=== PATIENT | female | born 1950 | race Caucasian/White ===

== ENCOUNTER → 2017-06-26 | Outpatient (CLI) | payer MEDICAID ==
[~2017-06-26] MED LIST: ALBU8.5H2 IH; AMOX500C2 PO; ASPI-892 PO; ATEN25TA PO; CLOP75TA PO; DOXY-182 PO; HYDR-34 PO; HYDR1TAB8 OP; LEVO750T6 PO; MPR22T TOP; ONDA-42 SL; PRAV10TA23 PO; PRD20T PO; SULF1TAB38 PO
== END ==
LOC: RT 13:57
PROVIDERS: ATTEND Internal Medicine Cardiovascular Disease
DX: R06.02 Shortness of breath (principal); I25.10 Atherosclerotic heart disease of native coronary artery without angina pectoris; I65.23 Occlusion and stenosis of bilateral carotid arteries; E78.4 Other hyperlipidemia; Z72.0 Tobacco use
CPT/HCPCS: 94060; 94726; 94729

== ENCOUNTER → 2017-07-06 | Outpatient (CLI) | payer MEDICAID | LOC: CARD 11:39 | PROVIDERS: ATTEND Internal Medicine Cardiovascular Disease | DX: I25.10 Atherosclerotic heart disease of native coronary artery without angina pectoris (principal); R06.02 Shortness of breath; I65.23 Occlusion and stenosis of bilateral carotid arteries; E78.4 Other hyperlipidemia; Z72.0 Tobacco use | CPT/HCPCS: 93306 ==

== ENCOUNTER → 2019-07-02 | Outpatient (CLI) | payer MEDICARE, MEDICAID ==
[~2019-07-02] VITALS: Ht 167 cm; Wt 56.0 kg
[~2019-07-02] MED LIST changes: +REGADENOSON 0.4 MG/5 ML SYR (LEXISCAN) IV ONE
[2019-07-02] MEDS: CATHETER FLUSH 10 ML SYR IV PRN ×2 (08:21→09:36)
[2019-07-02 09:34] VITALS: BP 156/76
--- NOTE | 2019-07-02 12:40 | STRESS TEST ---
DATE OF SERVICE: 07/02/2019 RESTING AND POST REGADENOSON TECHNETIUM-99M TETROFOSMIN SPECT CT IMAGING ORDERING PHYSICIAN: Sandra New APRN PRIMARY PHYSICIAN: Dr. Maldonado. OTHER PHYSICIAN: [facility]. CLINICAL DIAGNOSES: Coronary artery disease, history of tobacco use, hyperlipidemia. Baseline images were carried out after injection of 10.98 mCi of technetium-99m Tetrofosmin. This was followed by 0.4 mg regadenoson and 31.2 mCi of technetium-99m Tetrofosmin for stress imaging. The electrocardiogram showed sinus rhythm at baseline. It did not change significantly with the regadenoson infusion. There was subtle nonspecific ST abnormality at baseline, which did not change significantly. The patient tolerated the procedure well. Review of images at rest and following stress indicates a small inferolateral perfusion defect, which appears transient. Gated images show normal global left ventricular systolic function with normal regional wall motion. Left ventricular ejection fraction is calculated to be 67%. TID is absent (1.06). Left ventricular end diastolic volume is 38 mL. CONCLUSIONS: 1. This study is suggestive of a small amount of inferolateral ischemia. 2. Normal regional wall motion. 3. Normal global left ventricular systolic function with a calculated ejection fraction of 67%. Job ID: [id number] DocumentID: [id number] Dictated Date: 07/02/2019 12:25:14 Home Economist Date: 07/02/2019 12:40:18 Dictated By: PHILIP MALDONADO MD, MA, FACP, FACC,
== END ==
LOC: CARD 07:45
PROVIDERS: ATTEND Nurse Practitioner Family
DX: I25.10 Atherosclerotic heart disease of native coronary artery without angina pectoris (principal); I77.89 Other specified disorders of arteries and arterioles; E78.5 Hyperlipidemia, unspecified; Z72.0 Tobacco use
CPT/HCPCS: 78452; 93017

== ENCOUNTER 2019-08-06 07:07 | Day surgery (SDC) | payer MEDICARE, MEDICAID ==
[2019-08-06] VITALS (16 sets, daily range): BP systolic 120–162; BP diastolic 64–80
[~2019-08-06] VITALS: Ht 167 cm; Wt 56.0 kg
[~2019-08-06 07:07] MED LIST changes: -REGADENOSON 0.4 MG/5 ML SYR (LEXISCAN) IV ONE
[2019-08-06] MEDS ORDERED: LIDOCAINE 1% INJ 20 ML 20 ML VIAL ONE (07:09)
[2019-08-06] MEDS ORDERED: HEParin (CATH LAB) 2,000 ML IV ONE (07:09)
[2019-08-06] MEDS ORDERED: NS IV 1000 ML 1,000 ML ONE (07:09)
[2019-08-06] MEDS ORDERED: NS IV 1000 ML 1,000 ML IV SCH ×2 (07:15→10:01)
[2019-08-06] MEDS ORDERED: CLOP75TA28 PO (07:38)
[2019-08-06 07:46] LABS: HEMOGLOBIN 12.8 G/DL (11.5-16.0); MEAN PLATELET VOLUME 9.6 FL (7.4-10.4); RED CELL DISTRIBUTION WIDTH 12.7 % (10.0-14.5); WHITE BLOOD COUNT 5.7 10^3/uL (4.3-11.0)
[2019-08-06] MEDS ORDERED: MIDAZOLAM 5 MG/5 ML (VERSED) VIAL ONE (07:56)
[2019-08-06] MEDS ORDERED: fentaNYL INJECTION 100 MCG/2 ML AMP ONE (07:56)
[2019-08-06 07:58] LABS: INR 0.9 (0.8-1.4); PROTHROMBIN TIME PATIENT 11.9 SEC (12.2-14.7)
[2019-08-06 08:07] LABS: ALANINE AMINOTRANSFERASE 10 U/L (0-55); ALBUMIN 4.3 GM/DL (3.2-4.5); ALKALINE PHOSPHATASE 72 U/L (40-136); BILIRUBIN,TOTAL 0.5 MG/DL (0.1-1.0); BUN/CREATININE RATIO 10; CALCIUM 8.9 MG/DL (8.5-10.1); CARBON DIOXIDE 24 MMOL/L (21-32); CHLORIDE 101 MMOL/L (98-107); CHOLESTEROL 101 MG/DL (< 200); CREATININE SERUM 0.78 MG/DL (0.60-1.30); GFR ESTIMATED > 60; GLUCOSE 85 MG/DL (70-105); HDL CHOLESTEROL 67 MG/DL (40-60); POTASSIUM 3.9 MMOL/L (3.6-5.0); SODIUM 135 MMOL/L (135-145); TOTAL PROTEIN 6.9 GM/DL (6.4-8.2); TRIGLYCERIDES 46 MG/DL (<150); VLDL CHOLESTEROL 9 MG/DL (5-40)
[2019-08-06] MEDS ORDERED: ADENOSINE 3 MG/1 ML (ADENOSCAN) 30ML VIAL IV ONE (09:03)
[2019-08-06] MEDS ORDERED: HEParin 1000 UNIT/ML (10ML VIAL) FOR BOLUS ONE (09:03)
--- NOTE | 2019-08-06 10:01 | Cardiac Procedure Note-CS/ASA ---
Pre-Procedure Note Pre-Op Procedure Note H&P Reviewed The H&P was reviewed, patient examined and no changes noted. Date H&P Reviewed: Aug 06, 2019 Time H&P Reviewed: 08:45 Conscious Sedation Pre-Proced Time 08:45 ASA Score 3 For ASA 3 and 4: Consider anesthesia and medical clearance. Also, for patients with a history of failed moderate sedation consider anesthesia. Airway Lungs Heart ASA score ASA 1: a normal healthy patient ASA 2: a patient with a mild systemic disease (mid diabetes, controlled hypertension, obesity ASA 3: a patient with a severe systemic disease that limits activity (angina, COPD, prior Myocardial infarction) ASA 4: a patient with an incapacitating disease that is a constant threat to life (CHF, renal failure) ASA 5: a moribund patient not expected to survive 24 hrs. (ruptured aneurysm) ASA 6: a declared brain- patient whose organs are being harvested. For emergent operations, add the letter E after the classification Mallampati Classification Grade 2 Sedation Plan Analgesia, Amnesia, Plan communicated to team members, Discussed options with patient/fam, Discussed risks with patient/fam The patient is an appropriate candidate to undergo the planned procedure, sedation, and anesthesia. The patient immediately re-assessed prior to indication. PHILIP MALDONADO MD FACP FAC CCDS Aug 06, 2019 10:01
--- NOTE | 2019-08-06 10:05 | Discharge Inst-Cardiology ---
Discharge Inst-Cardiac Discharge Medications Continued Medications: Aspirin (Aspirin Ec Tab) 81 Mg Tabec 81 MG PO DAILY Atenolol (Tenormin 25 Mg) 25 Mg Tablet 12.5 MG PO HS Clopidogrel Bisulfate (Clopidogrel) 75 Mg Tablet 75 MG PO HS, TAB Pravastatin Sodium (Pravachol) 10 Mg Tablet 10 MG PO HS Patient Instructions Patient Instructions: No smoking PHILIP MALDONADO MD FACP [facility] Aug 06, 2019 10:05
--- NOTE | 2019-08-06 10:06 | Discharge Inst-Post CATH ---
Discharge Inst-CATH/EP Post Cardiac Cath/EP D/C Inst Follow Up/Plan F/u with Dr Hernandez in 3-4 weeks ACTIVITY * Go Home directly and rest. * Limit activity of the leg (or wrist if it was used) for 7 days including aerobics, swimming, jogging, bicycling, etc. * Restrict stair-climbing for 7 days if possible, if not, climb up with your non-cath leg, then bring together on the same step. * Avoid lifting, pushing, pulling or excessive movement of the affected extremity for 7 days. * Customary sexual activity may be resumed after 2 days-use caution not to use a position that strains or causes pain to the affected extremity. * No driving for 24 hours. * NO SMOKING. * Avoid straining for bowel movements for 7 days. * Gentle walking on level ground is allowed. * Returning to work will depend on the type of procedure and the results. Your doctor will discuss this with you. CALL YOUR DOCTOR FOR ANY OF THE FOLLOWING: *If bleeding from the puncture site occurs- Apply gentle pressure to site with clean cloth and call your doctor or EMS. * If a knot or lump forms under the skin, increases in size, or causes pain. * If bruising appears to be worsening or moving further down your leg instead of disappearing. * Temperature above 101 F. CARE OF YOUR GROIN INCISION; * Bruising or purple discoloration of the skin near the puncture site is common. * You may shower only, no bathtub bathing for 5 days. Be careful to avoid slipping as your leg may feel stiff. * If a closure device was used on your femoral artery, please see the attached guide regarding care of the device and your leg. * Leave dressing on FOR 24 hours. CARE OF YOUR WRIST INCISION; * Bruising or purple discoloration of the skin near the puncture site is common. * You may shower. * DO NOT submerge wrist. * Leave dressing on FOR 24 hours. PHILIP HERNANDEZ MD FACP FAC CCDS Aug 06, 2019 10:06
[2019-08-06] MEDS ORDERED: PATIENT MAY USE OWN MEDS, ALL PO SCH (10:15)
--- NOTE | 2019-08-06 10:53 | CARDIAC CATHETERIZATION ---
DATE OF SERVICE: 08/06/2019 CARDIAC CATHETERIZATION REPORT INDICATION: The patient is a 68-year-old lady, who is known to have coronary artery disease and continuing risk factors. She has been experiencing symptoms that are suggestive of recurrent angina. Previously, she has had stenting of the right coronary artery. Because of recurrent symptoms, cardiac catheterization was recommended. Informed consent was obtained. DESCRIPTION OF PROCEDURE: She was brought to the cardiac catheterization laboratory in a fasting state. Right groin was prepared and draped in the usual sterile fashion. Lidocaine 1% was used for local anesthesia. Modified Seldinger technique was used to advance a 5-[place] sheath in the right femoral artery, 5-[place] JL4 catheter was used for left coronary angiography, 5-[place] JR4 catheter for right coronary angiography, 5-[place] pigtail catheter was used for left heart catheterization and left ventricular angiography. Subsequently, the fractional flow reserve measurement was carried out in the right coronary artery and is described below. Following completion of the fractional flow reserve measurement, Mynx was used to achieve hemostasis following sheath removal. Angiography of the right femoral artery had been carried out through the sheath at the beginning of the procedure. The patient tolerated the procedure well. FRACTIONAL FLOW RESERVE MEASUREMENT IN THE RIGHT CORONARY ARTERY: The right coronary artery was demonstrating approximately 50% distal stenosis. To make sure, given the patient's symptoms, this was not a hemodynamically significant lesion, we carried out fractional flow reserve measurement. We used a 5-[place] JR4 catheter. We gave 5000 units of intravenous heparin. We advanced the pressure wire across the lesion and the tip was placed in the distal vessel. We gave 140 mcg per kilogram per minute of adenosine over two and a half minutes. Fractional flow reserve was measured at 0.89, indicating that the lesion was not hemodynamically significant. HEMODYNAMICS: Left ventricular end-diastolic pressure following coronary angiography was 11 mmHg. There was no significant pressure gradient on pullback across the aortic valve. Ascending aortic pressure was 117/60 with a mean of 83 mmHg. LEFT VENTRICULAR ANGIOGRAPHY: Left ventricular angiography was carried out in the right anterior oblique projection. Global left ventricular systolic function appeared normal. No regional wall motion abnormality was seen. Left ventricular ejection fraction approximately 60%. CORONARY ANGIOGRAPHY: Diffuse coronary calcification is seen. Left main coronary artery does not exhibit significant obstructive disease. Left anterior descending and the left circumflex arteries have diffuse moderate disease. Right coronary artery is dominant. There is a patent stent in its proximal and mid portions that does not showed significant in-stent restenosis. Distal right coronary has approximately 50% stenosis that has fractional flow reserve of 0.89 indicating that it is hemodynamically insignificant. CONCLUSIONS: 1. Moderate coronary artery disease as outlined above. A 50% distal lesion in the right coronary artery has a fractional flow reserve of 0.89 (indicating hemodynamic non-significance). 2. Normal global left ventricular systolic function with an ejection fraction of 60%. 3. Normal left ventricular end-diastolic pressure. DISCUSSION AND RECOMMENDATIONS: Based on the results of the study, it appears appropriate to continue a conservative approach. Risk factor modification has been advised. She has again been advised to quit smoking immediately and completely. Outpatient followup is advised. Job ID: [id number] DocumentID: [id number] Dictated Date: 08/06/2019 09:41:04 Make Up Editor Date: 08/06/2019 10:52:32 Dictated By: PHILIP MALODNADO MD, MA, FACP, FACC, MTDD
--- OUTSIDE RECORDS SUMMARY | 2019-08-08 07:51 | XMS REPORT ---
Author Author Vera DOLL Organization [facility] Address [address] [place] [address] Care Team Providers Care Terrazzo Journeyman Name Role Phone DOLLVERONICA GonzalesELE Unavailable PROBLEMS Type Condition ICD9-CM Code [id number] Code Onset Dates Condition S tatus SNOMED Code Problem Mixed hyperlipidemia E78.2 Active 472228656 Problem Tobacco abuse counseling Z71.6 Activ e 453043933 Problem Tobacco abuse Z72.0 Active 925814 000 Problem Coronary artery disease invo lving [place] coronary artery of [place] heart without angina pectoris I25.10 Active 1641 [id number] ALLERGIES No Known Allergies ENCOUNTERS Encounter Location Date Diagnosis [facility] [address] [place] [phone] 15 Jul, 2017 Mixed hyperlipidemia E78.2 ; Coronary artery disease involving [place] coronary artery of [place] heart without angina pectoris I25.10 ; Tobacco abuse Z72.0 and Tobacco abuse counseling Z71.6 [facility] [address] [place] [id number] [place] [phone] 14 Jul, 2017 [facility] [address] [place] [address] [id number] [address] [place] [phone] Aug, [facility] [address] [facility] [id number] [address] [place] [phone] Aug, [facility] [address] [id number] [place] [phone] Jan, [facility] [address] [id number] [place] [id number] Jan, [facility] [address] [id number] [place] [id number] Jan, [facility] [address] [id number] [place] [phone] Jan, [facility] [address] [id number] [place], [place] [phone] Jan, [facility] [address] [id number] [place], [place] [phone] Jan, [facility] [address] [id number] [place], [place] [id number] Jan, [facility] [address] [id number] [place], [place] [phone] Jan, [facility] [address] [id number] [place] [phone] Dec, IMMUNIZATIONS No Known Immunizations SOCIAL HISTORY Never Assessed REASON FOR VISIT Establish Care--[facility] PLAN OF CARE Activity Details Follow Up 1 Year, prn Reason: VITAL SIGNS Height 65 in 2017-08-10 Weight 126.7 lbs 2017-08-10 Temperature 97.5 degrees Fahrenheit 2017-08-10 Heart Rate 74 bpm 2017-08-10 Respiratory Rate 20 2017-08-10 BMI 21.08 kg/m2 2017-08-10 Blood pressure systolic 120 mmHg 2017-08-10 Blood pressure diastolic 78 mmHg 2017-08-10 MEDICATIONS Medication Instructions Dosage Frequency Start Date End Date Duration S valdo pravastatin 10 mg take 1 tablet (10 mg) by oral route once daily at bedtime Dec, Active Aspirin 81 mg 1 time per day Dec, Active Atenolol 25 mg 0.5 Tablet by Oral route 1 time per day 2 Dec, Active RESULTS No Results PROCEDURES No Known procedures INSTRUCTIONS MEDICATIONS ADMINISTERED No Known Medications MEDICAL (GENERAL) HISTORY Type Description Date Medical History 2006--- [place]- stent RCA w/ M-L vision 3.0 x 18 mm x 2 Surgical History hysterectomy Surgical History carpal tunnelx 2 on right, 1 x on left Surgical History stent x 2 2006 Hospitalization History Surgery(s)/Childbirth(s) only
--- OUTSIDE RECORDS SUMMARY | 2019-08-08 07:51 | XMS REPORT ---
Author Author Vera DOLL Organization [facility] Address [address] [place] [address] Care Team Providers Care Equalizing Saw Operator Name Role Phone DOLLVERONICA GonzalesELE Unavailable PROBLEMS Type Condition ICD9-CM Code [id number] Code Onset Dates Condition S tatus SNOMED Code Problem Mixed hyperlipidemia E78.2 Active 065331877 Problem Tobacco abuse counseling Z71.6 Activ e 880997145 Problem Tobacco abuse Z72.0 Active 100286 000 Problem Coronary artery disease invo lving [place] coronary artery of [place] heart without angina pectoris I25.10 Active 1641 936092983 ALLERGIES No Known Allergies ENCOUNTERS Encounter Location Date Diagnosis [facility] [address] [place] [phone] 15 Jul, 2017 Mixed hyperlipidemia E78.2 ; Coronary artery disease involving [place] coronary artery of [place] heart without angina pectoris I25.10 ; Tobacco abuse Z72.0 and Tobacco abuse counseling Z71.6 [facility] [address] [place] [id number] [address] [place] [phone] 14 Jul, 2017 [facility] [address] [place] [address] [id number] [address] [place] [phone] Aug, [facility] [address] [facility] [id number] [address] [place] [phone] Aug, [facility] [address] [id number] [place], [place] [id number] Jan, [facility] [address] [id number] [place] [phone] Jan, [facility] [address] [id number] [place] [id number] Jan, [facility] [address] [id number] [place] [phone] Jan, [facility] [address] [id number] [place], [place] [phone] Jan, [facility] [address] [id number] [place], [place] [phone] Jan, [facility] [place] [address] [id number] [place], S [phone] Jan, [facility] [place] [address] [id number] [place] [phone] Jan, [facility] [address] [facility] [id number] [place], [place] [phone] Dec, IMMUNIZATIONS No Known Immunizations SOCIAL HISTORY Never Assessed REASON FOR VISIT update [facility] PLAN OF CARE VITAL SIGNS MEDICATIONS Medication Instructions Dosage Frequency Start Date End Date Duration S valdo Atenolol 25 mg 0.5 Tablet by Oral route 1 time per day 2 Dec, Active pravastatin 10 mg take 1 tablet (10 mg) by oral route once daily at bedtime Dec, Active Aspirin 81 mg 1 time per day Dec, Active Plavix 75 mg take 1 tablet (75 mg) by oral route once daily Dec, Not-Taking RESULTS No Results PROCEDURES No Known procedures INSTRUCTIONS MEDICATIONS ADMINISTERED No Known Medications MEDICAL (GENERAL) HISTORY Type Description Date Medical History 2006--- [place]- stent RCA w/ M-L vision 3.0 x 18 mm x 2 Surgical History hysterectomy Surgical History carpal tunnelx 2 on right, 1 x on left Surgical History stent x 2 2006 Hospitalization History Surgery(s)/Childbirth(s) only
--- OUTSIDE RECORDS SUMMARY | 2019-08-08 07:51 | XMS REPORT ---
Author Author Vera Taveras Doctor Organization [facility] Address Unknown Phone Unavailable Care Team Providers Care Coring Machine Operator Name Role Phone Migration, Doctor Unavailable Unavailable PROBLEMS Type Condition ICD9-CM Code RCT45-TT Code Onset Dates Condition S tatus SNOMED Code Problem Tobacco abuse counseling Z71.6 Activ e 525433095 Problem Mixed hyperlipidemia E78.2 Active 870839229 Problem Coronary artery disease invo lving [place] coronary artery of [place] heart without angina pectoris I25.10 Active 1641 758951872 Problem Tobacco abuse Z72.0 Active 562044 000 ALLERGIES No Information ENCOUNTERS Encounter Location Date Diagnosis [place] [address] [place] [id number] [place] [phone] 15 Jul, 2017 Mixed hyperlipidemia E78.2 ; Coronary artery disease involving [place] coronary artery of [place] heart without angina pectoris I25.10 ; Tobacco abuse Z72.0 and Tobacco abuse counseling Z71.6 [place] [address] [facility] [id number] [address] [place] [phone] 14 Jul, 2017 [facility] [address] [facility] [id number] [address] [place] [phone] Aug, [facility] [address] [facility] [id number] [address] [place] [phone] Aug, [facility] [address] [id number] [place] [id number] Jan, [facility] [address] [id number] [place] [phone] Jan, [facility] [address] [id number] [place] [phone] Jan, [facility] [address] [id number] [place] [phone] Jan, [facility] [address] [id number] [place] [id number] Jan, [facility] [address] [id number] [place], [place] [phone] Jan, [facility] [address] [facility] [id number] [place], [place] [phone] Jan, [facility] [address] [facility] [id number] [place], S [phone] Jan, [facility] [address] [facility] [id number] [place] [phone] Dec, IMMUNIZATIONS No Known Immunizations SOCIAL HISTORY Never Assessed REASON FOR VISIT PLAN OF CARE VITAL SIGNS MEDICATIONS No Known Medications RESULTS No Results PROCEDURES No Known procedures INSTRUCTIONS MEDICATIONS ADMINISTERED No Known Medications MEDICAL (GENERAL) HISTORY Type Description Date Medical History 2006--- [place]- stent RCA w/ M-L vision 3.0 x 18 mm x 2 Surgical History hysterectomy Surgical History carpal tunnelx 2 on right, 1 x on left Surgical History stent x 2 2006 Hospitalization History Surgery(s)/Childbirth(s) only
--- OUTSIDE RECORDS SUMMARY | 2019-08-08 07:51 | XMS REPORT ---
Author Author Vera Taveras Doctor Organization [facility] Address Unknown Phone Unavailable Care Team Providers Care Deoiling Machine Operator Name Role Phone Migration, Doctor Unavailable Unavailable PROBLEMS Type Condition ICD9-CM Code RFX41-NS Code Onset Dates Condition S tatus SNOMED Code Problem Tobacco abuse counseling Z71.6 Activ e 265975141 Problem Mixed hyperlipidemia E78.2 Active 020951865 Problem Coronary artery disease invo lving [place] coronary artery of [place] heart without angina pectoris I25.10 Active 1641 919889606 Problem Tobacco abuse Z72.0 Active 560429 000 ALLERGIES No Information ENCOUNTERS Encounter Location Date Diagnosis [place] [address] [place] [id number] [place] [phone] 15 Jul, 2017 Mixed hyperlipidemia E78.2 ; Coronary artery disease involving [place] coronary artery of [place] heart without angina pectoris I25.10 ; Tobacco abuse Z72.0 and Tobacco abuse counseling Z71.6 [place] [address] [facility] [id number] [address] [place] [phone] 14 Jul, 2017 [facility] [address] [facility] [id number] [address] [place] [phone] Aug, [facility] [address] [facility] [id number] [address] [place] [phone] Aug, [facility] [address] [id number] [place] [phone] Jan, [facility] [address] [id number] [place], [place] [phone] Jan, [facility] [address] [id number] [place] [phone] Jan, [facility] [address] [id number] [place] [phone] Jan, [facility] [address] [id number] [place] [phone] Jan, [facility] [place] [address] [id number] [place] [phone] Jan, [facility] [place] [address] [id number] [place] S [phone] Jan, [facility] [place] [address] [id number] [place] S [phone] Jan, [facility] [place] [address] [id number] [place] S [phone] Dec, IMMUNIZATIONS No Known Immunizations SOCIAL HISTORY Never Assessed REASON FOR VISIT [facility] [place] VITAL SIGNS MEDICATIONS Medication Instructions Dosage Frequency Start Date End Date Duration S tatus Plavix 75 mg take 1 tablet (75 mg) by oral route once daily Dec, Active Atenolol 25 mg 0.5 Tablet by Oral route 1 time per day 2 Dec, Active pravastatin 10 mg take 1 tablet (10 mg) by oral route once daily at bedtime Dec, Active Aspirin 81 mg 1 time per day Dec, Active RESULTS No Results PROCEDURES No Known procedures INSTRUCTIONS MEDICATIONS ADMINISTERED No Known Medications MEDICAL (GENERAL) HISTORY Type Description Date Medical History 2006--- [place]- stent RCA w/ M-L vision 3.0 x 18 mm x 2 Surgical History hysterectomy Surgical History carpal tunnelx 2 on right, 1 x on left Surgical History stent x 2 2006 Hospitalization History Surgery(s)/Childbirth(s) only
--- OUTSIDE RECORDS SUMMARY | 2019-08-08 07:51 | XMS REPORT ---
Author Author [employer] Organization [employer] Address [address] [address] Care Team Providers Care Corporate Attorney Name Role Phone DC DOLL Unavailable DC DOLL Unavailable Migration, Doctor Unavailable Unavailable Migration, Doctor Unavailable Unavailable Migration, Doctor Unavailable Unavailable PO VERAS Unavailable Unavailable CAITY, JOANN Unavailable Unavailable CAROLINA, JOANN Unavailable Unavailable PHILIP ARELLANO MA Unavailable Unavailable JOHN HYMAN Unavailable Unavailable Allergies Normalized Allergy Reported Date of Reaction(s) Care Provider Facility Allergy Type classification allergen Allergy Onset no information Unclassified NO KNOWN DRUG UNKNOWN [facility] (5 sources.) ALLERGIES [facility] ([address]) Medications Current Medications Medication Ingredient Drug Dose Dates Status Sig Sig Care Class(es) (Normalized) (Original) Provid er no aspirin Nonsteroida 81 mg 01-19-20 Active no Aspirin 81 no information l 12 information mg 1 time name (3 Anti-inflam per day (no sources.) [facility] Dec, 2011 phone) Active 81 mg 01-19-2012 Active no Aspirin no name inform 81 mg 1 (no ation time per phone) day Dec, Active atenolol 25 atenolol beta-Adrene 12.5 01-19-20 Active take 0.5 Atenolol 25 no mg oral Translation rgic mg 12 tablet by mg 0.5 name tablet (3 s: [ Latoya mouth once Tablet by (no sources.) Atenolol 25 daily Oral route 1 phone) mg] time per day Dec, Active clopidogrel clopidogrel P2Y12 75 mg 01-19-20 Active take 1 Jeannette vix 75 mg no 75 mg oral Translation Platelet 12 tablet by take 1 na me tablet (2 s: [ Plavix Inhibitor mouth once tablet (75 (no sources.) 75 mg] daily mg) by oral phone) route once daily Dec, Active pravastatin pravastatin HMG-CoA 10 mg 01-19-20 Active take 1 pr avastatin no sodium 10 Translation Reductase 12 tablet by 10 mg take 1 name mg oral s: [ Inhibitor mouth once tablet (10 (no tablet (3 pravastatin daily at mg) by oral phone) sources.) 10 mg] bedtime route once daily at bedtime Dec, Active Completed/Discontinued Medications Medication Ingredient Drug Dose Dates Status Sig Sig Care Class(es) (Normalized) (Original) Provid er no Cephalexin Cephalospor 500 mg 03-05-20 no no no no information in 19 - informat information information name (1 source.) Antibacteri 03-05-20 ion (no al 19 phone) Problems Active Problems Problem Normalized Date of Normalized Normalized Provider Fac ility Classification Problem(s) Problem Problem Problem Sta tus Onset/Resoluti Duration on Chronic Chronic 07-08-2019 - Chronic Active JOHN BAIMA [facility] Via obstructive obstructive , [facility] pulmonary pulmonary [facility] - disease and disease, [place] bronchiectasis unspecified ([address]952) (6 sources.) Coronary Coronary 07-08-2019 - Chronic Active PHILIP MALDONADO V Via atherosclerosi arterioscleros [facility]NY [facility] s and other [facility] - heart disease artery [place] (20 sources.) Translations: (29416) [ Coronary artery disease involving [place] coronary artery of [place] heart without angina pectoris, - Coronary artery disease involving [place] coronary artery of [place] heart without angina pectoris I25.10] Administrative Counseling Episodic Active DC DOLL Co mmunity /social procedure with [address] [facility] admission (8 explicit of [place] sources.) context [place] ([address]) Translations: [ Tobacco abuse counseling, - Tobacco abuse counseling Z71.6] Other Disorder of 07-08-2019 - Chronic Active JOHN BAIM A [facility] Via circulatory arteries and , [facility] disease (6 arterioles, Hospital - sources.) unspecified [place] ([address]) Immunizations Encounter for Episodic Active [facility] and [facility] immunization District [facility] of for infectious Translations: [place] disease (2 [ NEED FOR County ([address]) sources.) PROPHYLACTIC VACCINATION AND INOCULATION AGAINST UNSPECIFIED SINGLE DISEASE] Disorders of Mixed 07-08-2019 - Chronic Active PHILIP MALDONADO [facility] Via lipid hyperlipidemia DANNY Mayers metabolism (20 Translations: Hospital - sources.) [ Mixed [place] hyperlipidemia ([address]279) , - Mixed hyperlipidemia E78.2, OTHER HYPERLIPIDEMIA , HYPERLIPIDEMIA , UNSPECIFIED] Occlusion or Occlusion and 07-08-2019 - Chronic Active ALI HERNÁNDEZ MMAD , [facility] Via 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 Hospital - arteries (14 carotid [place] sources.) arteries (17036) Open wounds of Open wound of Episodic Active [facility] extremities (9 foot except District [facility]1 of sources.) toe(s) alone, [place] without County (15561) mention of complication Translations: [ PUNCTURE WOUND WITHOUT FOREIGN BODY, LEFT FOOT, INIT ENCNTR ] Other Other 07-08-2019 - Chronic Active JOHN BAIMA [facility] Via circulatory specified , SET AND EXHIBIT DESIGNERKerri Mayers disease (4 disorders of Hospital - sources.) arteries and [place] arterioles (34818) Peripheral and Peripheral 07-08-2019 - Chronic Active JOHN BAIMA [facility] Via visceral vascular , [employer] DES[employer] [place] atherosclerosi disease, Hospital - s (6 sources.) unspecified [place] ([address]) Other lower Shortness of 07-08-2019 - Episodic Active ALI JUAN ALBERTO AD , [facility] Via respiratory breath [facility] disease (14 Hospital - sources.) [place] ([address]) Substance-rela Tobacco abuse Episodic Active DC DOLL [facility] gilda disorders counseling [address] [place] [address] (2 sources.) Translations: of [facility] [ - Tobacco [place] ([address]) abuse counseling Z71.6] Residual Tobacco use 07-08-2019 - Episodic Active JOHN BAIM A [facility] Via codes; Translations: , [employer] AND [employer] DES[employer] [place] unclassified [ - Tobacco Hospital - (20 sources.) abuse Z72.0] [place] ([address]) Screening or Tobacco user Chronic Active DC DOLL Tn mmunity history of Translations: [address] [place] [address] mental health [ Tobacco of [place] and substance abuse] [place] ([address]) abuse (5 sources.) Past or Other Problems Problem Normalized Date of Normalized Normalized Provider Fac ility Classification Problem(s) Problem Problem Problem Sta tus Onset/Resoluti Duration on Acute Acute Episodic Completed RON Not Available bronchitis (1 bronchitis LINN , (63412) source.) MD NEGATED Cough Episodic Completed RON Not Available no LINN , (64346) information (2 MD sources.) Nausea and Nausea with Episodic Completed JAZLYN WILBURN Not Nilsa ilable vomiting (1 vomiting (84716) source.) Unclassified Other Episodic Completed MARITZA ALFARO Not A vailable (1 source.) screening (19400) mammogram Disorders of Unspecified Episodic Completed MARA Not Nilsa ilable teeth and jaw disorder of TEOFILO SMYTH (01359) (1 source.) the teeth and supporting structures Translations: [ PERIAPICAL ABSCESS, UNSPEC DENTAL CARIES] Procedures The data below is from unstructured sources No Known procedures No Known procedures No Known procedures No Known procedures No Known procedures No Known procedures No Known procedures No Known procedures No Known procedures Immunizations Normalized Immunization Date Notes Care Provider Facili ty Immunization TETANUS,DIPTH,PERT 03-05-2019 no information no name Hosp ital District [facility] ADULT INJ 0 (ADACEL of [facility] SYRINGE) (37538) Results The data below is from unstructured sources No Results No Results No Results No Results No Results No Results No Results No Results No Results Vital Signs Vital Sign Value Interpretation Reference Date Time Care Prov ider Facility (Normalized) (Normalized) Range BMI (Body Mass 21.08 kg/m2 (no code) 15 - 25 kg/m2 08-10-2017 M ROSHNISVEN FRANCISY Community Index) 16:00-0400 [address] [facility] ([address]94) Body 97.5 [degF] (no code) 97.8 - 99.0 08-10-2017 DC LI DANGELO [facility] Temperature [degF] 16:00-[id number] [place] [address] ([address]) Height 165.1 cm (no code) cm 08-10-2017 DC DOLL C ommunity 16:00-[address] [place] [address] ([address]) Weight 57.47 kg (no code) kg 08-10-2017 DC DOLL C ommunity 16:00-[address] [place] [address] ([address]) Interventions No Information Plan of Treatment The data below is from unstructured sources Activity Details Follow Up 1 Year, prn Reason: Goals No Information Social History Normalized Code Original Code Date Value no information no information no information Unknown if ever smoked Functional Status No Information Mental Status No Information Encounters Encounter Normalized Encounter Encounter Diagnosis Care Provi karie Organization Date Type 08-10-2017 (ESTAB) Establish Care Mixed hyperlipidemia DC DOLL (no [facility] - phone) DC Juan (no phone) 08-10-2017 (no phone) - 08-10-2017 02-21-2012 [facility] no information Doctor Migration (no [facility] (no - phone) phone) 02-21-2012 - 02-21-2012 02-20-2012 [facility] no information Doctor Migration (no [facility] (no - phone) phone) 02-20-2012 - 02-20-2012 02-15-2012 [facility] no information Doctor Migration (no [facility] (no - phone) phone) 02-15-2012 - 02-15-2012 02-14-2012 [facility] no information Doctor Migration (no [facility] (no - phone) phone) 02-14-2012 - 02-14-2012 01-19-2012 [facility] no information Doctor Migration (no [facility] (no - phone) phone) 01-19-2012 - 01-19-2012 08-09-2017 [facility] no information DC DOLL (no [facility] - phone) DC Martinez (no phone) 08-09-2017 (no phone) - 08-09-2017 09-09-2014 [facility] no information Doctor Migrati on (no [facility] - phone) (no phone) 09-09-2014 - 09-09-2014 09-08-2014 [facility] no information Doctor Migrati on (no [facility] - phone) (no phone) 09-08-2014 - 09-08-2014 09-29-2013 Emergency department no information no name (no shani ne) no organization name - patient visit (no phone) 09-29-2013 06-07-2013 Emergency department no information no name (no shani ne) no organization name - patient visit (no phone) 06-07-2013 08-29-2012 Emergency department no information no name (no shani ne) no organization name - patient visit (no phone) 08-29-2012 08-10-2017 Patient encounter no information no name (no phone) no organization name (no phone) 07-06-2017 Patient encounter no information no name (no phone) no organization name (no phone) 06-26-2017 Patient encounter no information no name (no phone) no organization name (no phone) 12-03-2015 Patient encounter no information no name (no phone) no organization name (no phone) 01-23-2012 Patient encounter no information no name (no phone) no organization name (no phone) 07-02-2019 Patient encounter no information JOHN MONIQUE VARNISH FINISHER [facility] Via [place] procedure (no phone) [facility] (no phone) 03-05-2019 Patient encounter no information no name (no phone) no organization name - procedure (no phone) 03-06-2019 07-06-2017 Patient encounter no information PHILIP MALDONADO MA FSCA I [facility] Via [place] procedure (no phone) [facility] (no phone) 06-26-2017 Patient encounter no information PHILIP MALDONADO MA FSCA I [facility] Via [place] procedure (no phone) [facility] (no phone) 12-03-2015 Patient encounter no information JOHN MONIQUE VARNISH FINISHER [facility] Via [place] procedure (no phone) [facility] (no phone) Medical Equipment No Information Payers Normalized Payer Value Medicare no information Self-pay no information Additional Source Comments This clinical document has been generated using [employer] software that has been certified by the Office of the National Coordinator for Health Information Technology (ONC 15.99.04.3023.Diam.[id number]) and the National Committee for [employer] Supervisor (NCQA, as an eMeasure certified technology). FOR RECORDS PERTAINING TO PATIENTS WHO ARE OR HAVE BEEN ENROLLED IN A CHEMICAL D EPENDENCY/SUBSTANCE ABUSE PROGRAM, SOME INFORMATION MAY BE OMITTED. This clinica l summary was aggregated from multiple sources. Caution should be exercised in using it in the provision of clinical care. This summary normalizes information from multiple sources, and as a consequence, information in this document may ma terially change the coding, format and clinical context of patient data. In tameka tion, data may be omitted in some cases. CLINICAL DECISIONS SHOULD BE BASED ON T HE PRIMARY CLINICAL RECORDS. [email or web address] provides no warranty or guara ntee of the accuracy or completeness of information in this document.The followi ng information is based on time limited clinical information UNRECOGNIZED CONTENT PROVIDED BELOW FOR UNRECOGNIZED SECTION MEDICAL (GENERAL) HISTORY Type Description Date Medical History 2006--- [place]- stent RC A w/ M-L vision 3.0 x 18 mm x 2 Surgical History hysterectomy Surgical History carpal tunnelx 2 on right, 1 x on left Surgical History stent x 2 2006 Hospitalization History Surgery(s)/C hildbirth(s) only UNRECOGNIZED CONTENT PROVIDED BELOW FOR UNRECOGNIZED SECTION REASON FOR VISIT [id number]
--- OUTSIDE RECORDS SUMMARY | 2019-08-08 07:51 | XMS REPORT ---
Author Author Vera Taveras Doctor Organization [facility] Address Unknown Phone Unavailable Care Team Providers Care Appraisal Specialist Name Role Phone Migration, Doctor Unavailable Unavailable PROBLEMS Type Condition ICD9-CM Code EKS20-QD Code Onset Dates Condition S tatus SNOMED Code Problem Tobacco abuse counseling Z71.6 Activ e [id number] Problem Mixed hyperlipidemia E78.2 Active 836090117 Problem Coronary artery disease invo lving [place] coronary artery of [place] heart without angina pectoris I25.10 Active 1641 [id number] Problem Tobacco abuse Z72.0 Active 211366 000 ALLERGIES No Information ENCOUNTERS Encounter Location Date Diagnosis [place] [address] [place] [id number] [place] [id number] 15 Jul, 2017 Mixed hyperlipidemia E78.2 ; Coronary artery disease involving [place] coronary artery of [place] heart without angina pectoris I25.10 ; Tobacco abuse Z72.0 and Tobacco abuse counseling Z71.6 [place] [address] [facility] [id number] [address] [place] [phone] 14 Jul, 2017 [facility] [address] [facility] [id number] [address] [place] [phone] Aug, [facility] [address] [facility] [id number] [address] [place] [phone] Aug, [facility] [address] [id number] [place] [phone] Jan, [facility] [address] [id number] [place] [id number] Jan, [facility] [address] [id number] [place] [id number] Jan, [facility] [address] [id number] [place] [id number] Jan, [facility] [address] [id number] [place] [phone] Jan, [facility] [address] [id number] [place] [phone] Jan, [facility] [address] [id number] [place], [place] [phone] Jan, [facility] [address] [id number] [place] [phone] Jan, [facility] [address] [facility] [id number] [place] [id number] Dec, IMMUNIZATIONS No Known Immunizations SOCIAL HISTORY Never Assessed REASON FOR VISIT [facility] PLAN OF CARE VITAL SIGNS MEDICATIONS No Known Medications RESULTS No Results PROCEDURES No Known procedures INSTRUCTIONS MEDICATIONS ADMINISTERED No Known Medications MEDICAL (GENERAL) HISTORY Type Description Date Medical History 2006--- [place]- stent RCA w/ M-L vision 3.0 x 18 mm x 2 Surgical History hysterectomy Surgical History carpal tunnelx 2 on right, 1 x on left Surgical History stent x 2 2006 Hospitalization History Surgery(s)/Childbirth(s) only
--- OUTSIDE RECORDS SUMMARY | 2019-08-08 07:52 | XMS REPORT | Continuity of Care Document ---
Author Organization Unknown Address Unknown Phone Unavailable Allergies Active Description Code Type Severity Reaction Onset Reported/Identified Relationship to Patient Clinical Status Yes NO KNOWN DRUG ALLERGIES UNKNOWN UNKNOWN Yes No Known Drug Allergies [id number] Drug Allergy Mild N/A 09/22/2006 Medications Medication Packaging Start Date St op Date Route Dosage Sig CEPHALEXIN CAP 500 MG (KEFLEX) MG 03/05/2019 03/05/2019 ONCE&212 TETANUS,DIPTH,PERT ADULT INJ 0 (ADACEL SYRINGE) ML 03/05/2019 03/05/2019 ONCE&212 Problems Date Dx Coded Attending Type Code Diagnosis Diagnosed By 03/11/2011 Ot 816.10 FX PHALANX, HAND NOS-OPN 03/11/2011 Ot 959.5 FING ER INJURY NOS 03/11/2011 Ot E000.8 OT ER EXTERNAL CAUSE STATUS 03/11/2011 Ot E918 CAUGH T BETWEEN OBJECTS 03/11/2011 Ot V03.7 TETA NUS TOXOID INOCULAT 10/27/2011 Ot 300.4 DYST HYMIC DISORDER 10/27/2011 Ot 305.1 [facility] COORDINATOR USE DISORDER 10/27/2011 Ot 414.01 COR ONARY ATHEROSCLEROSIS OF [place] CORON 10/27/2011 Ot 496 CHR AI RWAY OBSTRUCT NEC 10/27/2011 Ot 786.09 RES PIRATORY ABNORM NEC 10/27/[address] PAIN NEC 10/27/2011 Ot V45.82 PER CUTANEOUS TRANSLUM CORON ANGIOPLASTY 10/27/2011 Ot V58.63 NU G- TERM(CURRENT)USE OF ANTIPLATELET/AN 10/27/2011 Ot V58.66 NU G-TERM (CURRENT) USE OF ASPIRIN 10/27/2011 Ot V58.69 OT MED,LT,CURRENT USE 08/29/2012 Ot 466.0 ACUT E BRONCHITIS 08/29/2012 Ot 786.2 COUGH 06/07/2013 JAZLYN WILBURN APRN Ot 786 .2 COUGH 06/07/2013 WILBURN, PETER J APPLICATIONS ANALYST Ot 787.01 NAUSEA WITH VOMITING 09/29/2013 MARA ACKERMAN Ot 521.00 UNSPEC DENTAL CARIES 09/29/2013 MARA ACKERMAN Ot 522.5 PERIAPICAL ABSCESS 09/29/2013 MARA ACKERMAN Ot 525.9 DENTAL DISORDER NOS 12/03/2015 Ot 305.1 [facility] COORDINATOR USE DISORDER 12/03/2015 Ot 414.00 COR ON ATHEROSCLER NOS TYPE VESSEL, NATIV 12/03/2015 Ot 496 CHR AI RWAY OBSTRUCT NEC 12/03/2015 Ot 786.05 ELVIN RTNESS OF BREATH 12/03/2015 Ot V58.63 NU G- TERM(CURRENT)USE OF ANTIPLATELET/AN 12/03/2015 Ot V58.66 NU G-TERM (CURRENT) USE OF ASPIRIN 12/03/2015 Ot V58.69 OTH MED,LT,CURRENT USE 12/03/2015 Ot V72.63 PRE -PROCEDURAL LABORATORY EXAMINATION 12/03/2015 Ot V72.81 ARIE-BSF-RWZSLHNAS CARDIOVASCULAR 12/03/2015 Ot V76.12 OT SCREEN MAMMO- MALIGN NEOPLASM OF [place] 12/04/2015 JOHN FELIPE L MOLD MAKER HELPER Ot E78.5 HYPERLIPIDEMIA, UNSPECIFIED 12/04/2015 BAIMA, JOHN L MOLD MAKER HELPER Ot I25.10 ATHSCL HEART DISEASE OF [place] CORONARY 12/04/2015 DESTINEE JOHN L MOLD MAKER HELPER Ot I73.9 PERIPHERAL VASCULAR DISEASE, UNSPECIFIED 12/04/2015 BAIMA JOHN L MOLD MAKER HELPER Ot I77.9 DISORDER OF ARTERIES AND ARTERIOLES, UNS 12/04/2015 JOHN FELIPE L MOLD MAKER HELPER Ot J44.9 CHRONIC OBSTRUCTIVE PULMONARY DISEASE, U 12/04/2015 GRISELDAMA JOHN L MOLD MAKER HELPER Ot Z72.0 TOBACCO USE 12/09/2015 GRISELDAMA JOHN L MOLD MAKER HELPER Ot E78.5 HYPERLIPIDEMIA, UNSPECIFIED 12/09/2015 GRISELDAMA JOHN L MOLD MAKER HELPER Ot I25.10 ATHSCL HEART DISEASE OF [place] CORONARY 12/09/2015 JANNY FELIPEHER L MOLD MAKER HELPER Ot I73.9 PERIPHERAL VASCULAR DISEASE, UNSPECIFIED 12/09/2015 BAIMAJANNYJOHN L MOLD MAKER HELPER Ot I77.9 DISORDER OF ARTERIES AND ARTERIOLES, UNS 12/09/2015 DESTINEE JOHN L MOLD MAKER HELPER Ot J44.9 CHRONIC OBSTRUCTIVE PULMONARY DISEASE, U 12/09/2015 JOHN FELIPE MOLD MAKER HELPER Ot Z72.0 TOBACCO USE 12/23/2015 JOHN FELIPE MOLD MAKER HELPER Ot E78.5 HYPERLIPIDEMIA, UNSPECIFIED 12/23/2015 BAIMAJOHN L MOLD MAKER HELPER Ot I25.10 ATHSCL HEART DISEASE OF [place] CORONARY 12/23/2015 JOHN FELIPE L MOLD MAKER HELPER Ot I73.9 PERIPHERAL VASCULAR DISEASE, UNSPECIFIED 12/23/2015 JOHN FELIPE L MOLD MAKER HELPER Ot I77.9 DISORDER OF ARTERIES AND ARTERIOLES, UNS 12/23/2015 JOHN FELIPE L MOLD MAKER HELPER Ot J44.9 CHRONIC OBSTRUCTIVE PULMONARY DISEASE, U 12/23/2015 JOHN FELIPE MOLD MAKER HELPER Ot Z72.0 TOBACCO USE 06/26/2017 Ot V76.12 OTH SCREEN MAMMO- MALIGN NEOPLASM OF [place] 06/26/2017 JOHN FELIPE MOLD MAKER HELPER Ot E78.5 HYPERLIPIDEMIA, UNSPECIFIED 06/26/2017 BAIJOHN DELGADO L MOLD MAKER HELPER Ot I25.10 ATHSCL HEART DISEASE OF [place] CORONARY 06/26/2017 JOHN FELIPE MOLD MAKER HELPER Ot I73.9 PERIPHERAL VASCULAR DISEASE, UNSPECIFIED 06/26/2017 JOHN FELIPE MOLD MAKER HELPER Ot I77.9 DISORDER OF ARTERIES AND ARTERIOLES, UNS 06/26/2017 JOHN FELIPE MOLD MAKER HELPER Ot J44.9 CHRONIC OBSTRUCTIVE PULMONARY DISEASE, U 06/26/2017 JOHN FELIPE L MOLD MAKER HELPER Ot Z72.0 TOBACCO USE 06/27/2017 ERICA ARRIAZA FACC, PHILIP FACP CCDS Ot E78.4 OTHER HYPERLIPIDEMIA 06/27/2017 ERICA ARRIAZA FACC, ALI FACP CCDS Ot I25.10 ATHSCL HEART DISEASE OF [place] CORONARY 06/27/2017 ERICA ARRIAZA FACC, PHILIP FACP CCDS Ot I65.23 OCCLUSION AND STENOSIS OF [place] 06/27/2017 ERICA ARRIAZA FACC, PHILIP FACP CCDS Ot R06.02 SHORTNESS OF BREATH 06/27/2017 ERICA ARRIAZA FACC, ALI FACP CCDS Ot Z72.0 TOBACCO USE 07/11/2017 ERICA ARRIAZA FACC, PHILIP FACP CCDS Ot E78.4 OTHER HYPERLIPIDEMIA 07/11/2017 ERICA ARRIAZA FACC, ALI FACP CCDS Ot I25.10 ATHSCL HEART DISEASE OF [place] CORONARY 07/11/2017 ERICA ARRIAZA FACC, ALI FACP CCDS Ot I65.23 OCCLUSION AND STENOSIS OF [place] 07/11/2017 ERICA MD FACC, ALI FACP CCDS Ot R06.02 SHORTNESS OF BREATH 07/11/2017 ERICA ARRIAZA FACC, ALI FACP CCDS Ot Z72.0 TOBACCO USE 07/13/2017 ERICA MD FACC, ALI FACP CCDS Ot E78.4 OTHER HYPERLIPIDEMIA 07/13/2017 ERICA MD FACC, ALI FACP CCDS Ot I25.10 ATHSCL HEART DISEASE OF [place] CORONARY 07/13/2017 ERICA MD FACC, ALI FACP CCDS Ot I65.23 OCCLUSION AND STENOSIS OF [place] 07/13/2017 ERICA ARRIAZA FACC, ALI FACP CCDS Ot R06.02 SHORTNESS OF BREATH 07/13/2017 ERICA ARRIAZA FACC, ALI FACP CCDS Ot Z72.0 TOBACCO USE 07/13/2017 ERICA ARRIAZA FACC, ALI FACP CCDS Ot E78.4 OTHER HYPERLIPIDEMIA 07/13/2017 ERICA ARRIAZA FAC, ALI FACP CCDS Ot I25.10 ATHSCL HEART DISEASE OF [place] CORONARY 07/13/2017 ERICA ARRIAZA FAC, ALI FACP CCDS Ot I65.23 OCCLUSION AND STENOSIS OF [place] 07/13/2017 ERICA ARRIAZA FAC, ALI FACP CCDS Ot R06.02 SHORTNESS OF BREATH 07/13/2017 ERICA ARRIAZA [facility], ALI FACP CCDS Ot Z72.0 TOBACCO USE 07/24/2017 ERICA ARRIAZA [facility], ALI FACP CCDS Ot E78.4 OTHER HYPERLIPIDEMIA 07/24/2017 ERICA ARRIAZA [facility], ALI FACP CCDS Ot I25.10 ATHSCL HEART DISEASE OF [place] CORONARY 07/24/2017 ERICA ARRIAZA FAC, ALI FACP CCDS Ot I65.23 OCCLUSION AND STENOSIS OF [place] 07/24/2017 ERICA ARRIAZA FACC, ALI FACP CCDS Ot R06.02 SHORTNESS OF BREATH 07/24/2017 ERICA ARRIAZA FACC, ALI FACP CCDS Ot Z72.0 TOBACCO USE 03/05/2019 BrownDarvin W 892.0 OPEN WOUND OF FOOT EXCEPT TOE(S) ALONE, WITHOUT MENTION OF COMPLICATION 03/05/2019 BrownDarvin W 892.0 OPEN WOUND OF FOOT EXCEPT TOE(S) ALONE, WITHOUT MENTION OF COMPLICATION 03/05/2019 Darvin Hankins W 892.0 OPEN WOUND OF FOOT EXCEPT TOE(S) ALONE, WITHOUT MENTION OF COMPLICATION 03/05/2019 Darvin Hankins W S91.332A PUNCTURE WOUND WITHOUT FOREIGN BODY, LEFT FOOT, INIT ENCNTR 03/05/2019 Darvin Hankins W V05.9 NEED FOR PROPHYLACTIC VACCINATION AND INOCULATION AGAINST UNSPECIFIED SINGLE DISEASE 03/05/2019 Darvin Hankins W Z23 ENCOUNTER FOR IMMUNIZATION 07/01/2019 JOHN FELIPE MOLD MAKER HELPER Ot E78.5 HYPERLIPIDEMIA, UNSPECIFIED 07/01/2019 JOHN FELIPE L MOLD MAKER HELPER Ot I25.10 ATHSCL HEART DISEASE OF [place] CORONARY 07/01/2019 JOHN FELIPE MOLD MAKER HELPER Ot I73.9 PERIPHERAL VASCULAR DISEASE, UNSPECIFIED 07/01/2019 JOHN FELIPE MOLD MAKER HELPER Ot I77.9 DISORDER OF ARTERIES AND ARTERIOLES, UNS 07/01/2019 JOHN FELIPE MOLD MAKER HELPER Ot J44.9 CHRONIC OBSTRUCTIVE PULMONARY DISEASE, U 07/01/2019 JOHN FELIPE L MOLD MAKER HELPER Ot Z72.0 TOBACCO USE 07/01/2019 ERICA ARRIAZA [facility], ALI FACP CCDS Ot E78.4 OTHER HYPERLIPIDEMIA 07/01/2019 ERICA ARRIAZA [facility], ALI FACP CCDS Ot I25.10 ATHSCL HEART DISEASE OF [place] CORONARY 07/01/2019 ERICA ARRIAZA [facility], ALI FACP CCDS Ot I65.23 OCCLUSION AND STENOSIS OF [place] 07/01/2019 ERICA RARIAZA [facility], ALI FACP CCDS Ot R06.02 SHORTNESS OF BREATH 07/01/2019 ERICA ARRIAZA [facility], ALI FACP CCDS Ot Z72.0 TOBACCO USE 07/01/2019 ERICA ARRIAZA [facility], ALI FACP CCDS Ot E78.4 OTHER HYPERLIPIDEMIA 07/01/2019 ERICA ARRIAZA [facility], ALI FACP CCDS Ot I25.10 ATHSCL HEART DISEASE OF [place] CORONARY 07/01/2019 ERICA ARRIAZA [facility], ALI FACP CCDS Ot I65.23 OCCLUSION AND STENOSIS OF [place] 07/01/2019 ERICA RENNER, ALI FACP CCDS Ot R06.02 SHORTNESS OF BREATH 07/01/2019 ERICA ARRIAZA FACC, ALI FACP CCDS Ot Z72.0 TOBACCO USE 07/02/2019 BAIMA, JOHN L MOLD MAKER HELPER Ot E78.5 HYPERLIPIDEMIA, UNSPECIFIED 07/02/2019 BAIMA, JOHN L MOLD MAKER HELPER Ot I25.10 ATHSCL HEART DISEASE OF [place] CORONARY 07/02/2019 BAIMA, JOHN L MOLD MAKER HELPER Ot I73.9 PERIPHERAL VASCULAR DISEASE, UNSPECIFIED 07/02/2019 BAIMA, JOHN L MOLD MAKER HELPER Ot I77.9 DISORDER OF ARTERIES AND ARTERIOLES, UNS 07/02/2019 BAIMA, JOHN L MOLD MAKER HELPER Ot J44.9 CHRONIC OBSTRUCTIVE PULMONARY DISEASE, U 07/02/2019 BAIMA, JOHN L MOLD MAKER HELPER Ot Z72.0 TOBACCO USE 07/02/2019 ERICA ARRIAZA FACC, ALI FACP CCDS Ot E78.4 OTHER HYPERLIPIDEMIA 07/02/2019 ERICA ARRIAZA [facility], ALI FACP CCDS Ot I25.10 ATHSCL HEART DISEASE OF [place] CORONARY 07/02/2019 ERICA ARRIAZA [facility], ALI FACP CCDS Ot I65.23 OCCLUSION AND STENOSIS OF [place] 07/02/2019 ERICA ARRIAZA [facility], ALI FACP CCDS Ot R06.02 SHORTNESS OF BREATH 07/02/2019 ERICA ARRIAZA [facility], ALI FACP CCDS Ot Z72.0 TOBACCO USE 07/02/2019 ERICA ARRIAZA [facility], ALI FACP CCDS Ot E78.4 OTHER HYPERLIPIDEMIA 07/02/2019 ERICA ARRIAZA [facility], ALI FACP CCDS Ot I25.10 ATHSCL HEART DISEASE OF [place] CORONARY 07/02/2019 ERICA ARRIAZA [facility], PHILIP FACP CCDS Ot I65.23 OCCLUSION AND STENOSIS OF [place] 07/02/2019 ERICA ARRIAZA [facility], ALI FACP CCDS Ot R06.02 SHORTNESS OF BREATH 07/02/2019 REICA ARRIAZA [facility], ALI FACP CCDS Ot Z72.0 TOBACCO USE 07/03/2019 BAIMA, JOHN L MOLD MAKER HELPER Ot E78.5 HYPERLIPIDEMIA, UNSPECIFIED 07/03/2019 BAIMA, JOHN L MOLD MAKER HELPER Ot I25.10 ATHSCL HEART DISEASE OF [place] CORONARY 07/03/2019 BAIMA, JOHN L MOLD MAKER HELPER Ot I77.89 OTHER SPECIFIED DISORDERS OF ARTERIES AN 07/03/2019 BAIMA, JOHN L MOLD MAKER HELPER Ot Z72.0 TOBACCO USE 07/08/2019 BAIMA, JOHN L MOLD MAKER HELPER Ot E78.5 HYPERLIPIDEMIA, UNSPECIFIED 07/08/2019 BAIMA, JOHN L MOLD MAKER HELPER Ot I25.10 ATHSCL HEART DISEASE OF [place] CORONARY 07/08/2019 BAIMA, JOHN L MOLD MAKER HELPER Ot I73.9 PERIPHERAL VASCULAR DISEASE, UNSPECIFIED 07/08/2019 BAIMA, JOHN L MOLD MAKER HELPER Ot I77.9 DISORDER OF ARTERIES AND ARTERIOLES, UNS 07/08/2019 BAIMA, JOHN L MOLD MAKER HELPER Ot J44.9 CHRONIC OBSTRUCTIVE PULMONARY DISEASE, U 07/08/2019 BAIMA, JOHN L MOLD MAKER HELPER Ot Z72.0 TOBACCO USE 07/08/2019 ERICA ARRIAZA [facility], ALI FACP CCDS Ot E78.4 OTHER HYPERLIPIDEMIA 07/08/2019 ERICA ARRIAZA [facility], ALI FACP CCDS Ot I25.10 ATHSCL HEART DISEASE OF [place] CORONARY 07/08/2019 ERICA ARRIAZA [facility], ALI FACP CCDS Ot I65.23 OCCLUSION AND STENOSIS OF [place] 07/08/2019 ERICA ARRIAZA [facility], ALI FACP CCDS Ot R06.02 SHORTNESS OF BREATH 07/08/2019 ERICA ARRIAZA [facility], ALI FACP CCDS Ot Z72.0 TOBACCO USE 07/08/2019 ERICA ARRIAZA [facility], ALI FACP CCDS Ot E78.4 OTHER HYPERLIPIDEMIA 07/08/2019 ERICA ARRIAZA [facility], ALI FACP CCDS Ot I25.10 ATHSCL HEART DISEASE OF [place] CORONARY 07/08/2019 ERICA ARRIAZA [facility], ALI FACP CCDS Ot I65.23 OCCLUSION AND STENOSIS OF [place] 07/08/2019 ERICA ARRIAZA [facility], ALI FACP CCDS Ot R06.02 SHORTNESS OF BREATH 07/08/2019 ERICA ARRIAZA [facility], ALI FACP CCDS Ot Z72.0 TOBACCO USE 07/08/2019 BAIMA, JOHN L MOLD MAKER HELPER Ot E78.5 HYPERLIPIDEMIA, UNSPECIFIED 07/08/2019 BAIMA, JOHN L MOLD MAKER HELPER Ot I25.10 ATHSCL HEART DISEASE OF [place] CORONARY 07/08/2019 BAIMA, JOHN L MOLD MAKER HELPER Ot I77.89 OTHER SPECIFIED DISORDERS OF ARTERIES AN 07/08/2019 BAIMA, JOHN L MOLD MAKER HELPER Ot Z72.0 TOBACCO USE 07/08/2019 BAIMA, JOHN L MOLD MAKER HELPER Ot E78.5 HYPERLIPIDEMIA, UNSPECIFIED 07/08/2019 BAIMA, JOHN L MOLD MAKER HELPER Ot I25.10 ATHSCL HEART DISEASE OF [place] CORONARY 07/08/2019 BAIMA, JOHN L MOLD MAKER HELPER Ot I73.9 PERIPHERAL VASCULAR DISEASE, UNSPECIFIED 07/08/2019 BAIMA, JOHN L MOLD MAKER HELPER Ot I77.9 DISORDER OF ARTERIES AND ARTERIOLES, UNS 07/08/2019 BAIMA, JOHN L MOLD MAKER HELPER Ot J44.9 CHRONIC OBSTRUCTIVE PULMONARY DISEASE, U 07/08/2019 BAIMA, JOHN L MOLD MAKER HELPER Ot Z72.0 TOBACCO USE 07/08/2019 ERICA ARRIAZA [facility], ALI FACP CCDS Ot E78.4 OTHER HYPERLIPIDEMIA 07/08/2019 ERICA ARRIAZA [facility], ALI FACP CCDS Ot I25.10 ATHSCL HEART DISEASE OF [place] CORONARY 07/08/2019 ERICA ARRIAZA [facility], ALI FACP CCDS Ot I65.23 OCCLUSION AND STENOSIS OF [place] 07/08/2019 ERICA ARRIAZA [facility], ALI FACP CCDS Ot R06.02 SHORTNESS OF BREATH 07/08/2019 ERICA ARRIAZA [facility], ALI FACP CCDS Ot Z72.0 TOBACCO USE 07/08/2019 ERICA ARRIAZA [facility], ALI FACP CCDS Ot E78.4 OTHER HYPERLIPIDEMIA 07/08/2019 ERICA ARRIAZA [facility], ALI FACP CCDS Ot I25.10 ATHSCL HEART DISEASE OF [place] CORONARY 07/08/2019 ERICA ARRIAZA [facility], ALI FACP CCDS Ot I65.23 OCCLUSION AND STENOSIS OF [place] 07/08/2019 ERICA ARRIAZA [facility], ALI FACP CCDS Ot R06.02 SHORTNESS OF BREATH 07/08/2019 ERICA ARRIAZA [facility], ALI FACP CCDS Ot Z72.0 TOBACCO USE 07/08/2019 BAIMA, JOHN L MOLD MAKER HELPER Ot E78.5 HYPERLIPIDEMIA, UNSPECIFIED 07/08/2019 BAIMA, JOHN L MOLD MAKER HELPER Ot I25.10 ATHSCL HEART DISEASE OF [place] CORONARY 07/08/2019 BAIMA, JOHN L MOLD MAKER HELPER Ot I77.89 OTHER SPECIFIED DISORDERS OF ARTERIES AN 07/08/2019 BAIMA, JOHN L MOLD MAKER HELPER Ot Z72.0 TOBACCO USE 07/23/2019 BAIMA, JOHN L MOLD MAKER HELPER Ot E78.5 HYPERLIPIDEMIA, UNSPECIFIED 07/23/2019 BAIMA, JOHN L MOLD MAKER HELPER Ot I25.10 ATHSCL HEART DISEASE OF [place] CORONARY 07/23/2019 BAIMA, JOHN L MOLD MAKER HELPER Ot I77.89 OTHER SPECIFIED DISORDERS OF ARTERIES AN 07/23/2019 BAIMA, JOHN L MOLD MAKER HELPER Ot Z72.0 TOBACCO USE 08/06/2019 BAIMA, JOHN L MOLD MAKER HELPER Ot E78.5 HYPERLIPIDEMIA, UNSPECIFIED 08/06/2019 BAIMA, JOHN L MOLD MAKER HELPER Ot I25.10 ATHSCL HEART DISEASE OF [place] CORONARY 08/06/2019 BAIMA, JOHN L MOLD MAKER HELPER Ot I73.9 PERIPHERAL VASCULAR DISEASE, UNSPECIFIED 08/06/2019 BAIMA, JOHN L MOLD MAKER HELPER Ot I77.9 DISORDER OF ARTERIES AND ARTERIOLES, UNS 08/06/2019 BAIMA, JOHN L MOLD MAKER HELPER Ot J44.9 CHRONIC OBSTRUCTIVE PULMONARY DISEASE, U 08/06/2019 BAIMA, JOHN L MOLD MAKER HELPER Ot Z72.0 TOBACCO USE 08/06/2019 ERICA ARRIAZA FACVladimir, ALI FACP CCDS Ot E78.4 OTHER HYPERLIPIDEMIA 08/06/2019 ERICA ARRIAZA FAC, ALI FACP CCDS Ot I25.10 ATHSCL HEART DISEASE OF [place] CORONARY 08/06/2019 ERIAC ARRIAZA FACC, ALI FACP CCDS Ot I65.23 OCCLUSION AND STENOSIS OF [place] 08/06/2019 ERICA ARRIAZA FACC, ALI FACP CCDS Ot R06.02 SHORTNESS OF BREATH 08/06/2019 ERICA ARRIAZA FACVladimir, ALI FACP CCDS Ot Z72.0 TOBACCO USE 08/06/2019 ERICA ARRIAZA FACVladimir, ALI FACP CCDS Ot E78.4 OTHER HYPERLIPIDEMIA 08/06/2019 ERICA ARRIAZA FACC, ALI FACP CCDS Ot I25.10 ATHSCL HEART DISEASE OF [place] CORONARY 08/06/2019 ERICA ARRIAZA FACC, ALI FACP CCDS Ot I65.23 OCCLUSION AND STENOSIS OF [place] 08/06/2019 ERICA ARRIAZA FACC, ALI FACP CCDS Ot R06.02 SHORTNESS OF BREATH 08/06/2019 ERICA ARRIAZA FACC, ALI FACP CCDS Ot Z72.0 TOBACCO USE 08/06/2019 BAIMA, JOHN L MOLD MAKER HELPER Ot E78.5 HYPERLIPIDEMIA, UNSPECIFIED 08/06/2019 BAIMA, JOHN L MOLD MAKER HELPER Ot I25.10 ATHSCL HEART DISEASE OF [place] CORONARY 08/06/2019 JOHN FELIPE MOLD MAKER HELPER Ot I77.89 OTHER SPECIFIED DISORDERS OF ARTERIES AN 08/06/2019 JOHN FELIPE MOLD MAKER HELPER Ot Z72.0 TOBACCO USE Procedures There is no data. Results Test Result Range Automated blood complete blood count (he mogram) panel - 08/06/19 07:32 Blood leukocytes automated count (number/volume) 5.7 10*3/uL 4.3-11.0 Blood erythrocytes automated count (number/volume) 3.81 10*6/uL 4.35-5.85 Venous blood hemoglobin measurement (mass/volume) 12.8 g/dL 11.5-16.0 Blood hematocrit (volume fraction) 37 % 35-52 Automated erythrocyte mean corpuscular volume 97 [ foz_us] 80-99 Automated erythrocyte mean corpuscular h emoglobin (mass per erythrocyte) 34 pg 25-34 Automated erythrocyte mean corpuscular h emoglobin concentration measurement (mass/volume) 35 g/dL 32-36 Automated erythrocyte distribution width ratio 12. 7 % 10.0- 14.5 Automated blood platelet count (count/volume) 205 10*3/uL 130-400 Automated blood platelet mean volume measurement 9.6 [foz_us] 7.4-10.4 PT panel in platelet poor plasma by coag ulation assay - 08/06/19 07:32 Prothrombin time (PT) in platelet poor plasma by coagu lation assay 11.9 s 12.2-14.7 INR in platelet poor plasma or blood by coagulation as say 0.9 0.8-1.4 Activated partial thromboplastin time (a PTT) in platelet poor plasma bycoagulation assay - 08/06/19 07:32 Activated partial thromboplastin time (a PTT) in platelet poor plasma bycoagulation assay 28 s 24-35 Comprehensive metabolic panel - 08/06/19 07:32 Serum or plasma sodium measurement (moles/volume) 135 mmol/L 135-145 Serum or plasma potassium measurement (moles/volume) 3.9 mmol/L 3.6-5.0 Serum or plasma chloride measurement (moles/volume) 101 mmol/L 98-107 Carbon dioxide 24 mmol/L 21-32 Serum or plasma anion gap determination (moles/volume) 10 mmol/L 5-14 Serum or plasma urea nitrogen measurement (mass/volume ) 8 mg/dL 7-18 Serum or plasma creatinine measurement (mass/volume) 0.78 mg/dL 0.60-1.30 Serum or plasma urea nitrogen/creatinine mass ratio 10 NRG Serum or plasma creatinine measurement w ith calculation of estimated glomerular filtration rate > NRG Serum or plasma glucose measurement (mass/volume) 85 mg/dL 70-105 Serum or plasma calcium measurement (mass/volume) 8.9 mg/dL 8.5-10.1 Serum or plasma total bilirubin measurement (mass/volu me) 0.5 mg/dL 0.1-1.0 Serum or plasma alkaline phosphatase thang surement (enzymatic activity/volume) 72 U/L 40-136 Serum or plasma aspartate aminotransfera se measurement (enzymatic activity/volume) 14 U/L 5-34 Serum or plasma alanine aminotransferase measurement (enzymatic activity/volume) 10 U/L 0-55 Serum or plasma protein measurement (mass/volume) 6.9 g/dL 6.4-8.2 Serum or plasma albumin measurement (mass/volume) 4.3 g/dL 3.2-4.5 CALCIUM CORRECTED 8.7 mg/dL 8.5-10.1 Lipid 1996 panel - 08/06/19 07:32 Serum or plasma triglyceride measurement (mass/volume) 46 mg/dL <150 Serum or plasma cholesterol measurement (mass/volume) 101 mg/dL < 200 Serum or plasma cholesterol in HDL measurement (mass/v olume) 67 mg/dL 40-60 Cholesterol in LDL [mass/volume] in serum or plasma by direct assay 23 mg/dL 1-129 Serum or plasma cholesterol in VLDL measurement (mass/ volume) 9 mg/dL 5-40 Methicillin resistant Staphylococcus aur eus (MRSA) screening culture - 08/06/19 07:32 Methicillin resistant Staphylococcus aureus (MRSA) scr eening culture NEG NRG Encounters ACCT No. Visit Date/Time Discharge Status Pt. Type Provider Facility Loc./Unit Complaint [id number] 03/05/2019 20:51:00 03/05/2019 23:48: 00 DIS Outpatient Darvin Hankins [id number] 03/05/2019 21:26:27 Document Registration [id number] 08/06/2019 07:07:00 020 14:35:00 DIS Outpatient ERICA ARRIAZA FACC, ALI FACP CC DS [facility] CATH CAD,ANGINA,SOB,HTN,HYPERLIPIDMIA [id number] 07/02/2019 07:45:00 020 23:59:59 CLS Outpatient JOHN FELIPEP [facility] CARD CAD,CAROTID ART ERIAL DISEASE,HYPERLIPIDEMIA [id number] 06/13/2019 09:58:00 020 23:59:59 CLS Preadmit JOHN FELIPE [employer] [facility] CARD CAD,CAROTID ART DISEASE,HYPERLIPIDEMIA,TOBACCO ABU [id number] 03/13/2019 16:52:00 019 23:59:59 CLS Preadmit ERICA ARRIAZA FACVladimir, ALI FACP CCDS [facility] CARD CAD,CAROTID ART ERIAL DISEASE,TOBACCO USE,SOB [id number] 07/06/2017 11:39:00 018 23:59:59 CLS Outpatient ERICA ARRIAZA FACC, ALI FACP CC DS [facility] CARD R06.02 SOB [id number] 06/26/2017 13:57:00 018 23:59:59 CLS Outpatient ERICA ARRIAZA FACC, ALI FACP CC DS [facility] RT R06.02 SOB [id number] 06/20/2017 12:30:00 018 23:59:59 CLS Preadmit ERICA ARRIAZA FACC, ALI FACP CCDS [facility] CARD R06.02 SOB [id number] 12/03/2015 13:59:00 016 23:59:59 CLS Outpatient JOHN FELIPEP [facility] RAD CLAUDICATION [id number] 09/29/2013 10:30:00 014 12:50:00 DIS Emergency MARA ACKERMAN [facility] ER DENTAL PAIN [id number] 06/07/2013 13:36:00 014 17:13:00 DIS Emergency JAZLYN WILBURN APRN [facility] ER FLU [id number] 12/03/2015 13:58:00 Document Registration [id number] 08/29/2012 14:11:00 Document Registration [id number] 01/23/2012 12:59:00 Document Registration [id number] 10/27/2011 05:37:00 Document Registration [id number] 10/26/2011 09:07:00 Document Registration [id number] 03/11/2011 15:01:00 Document Registration
== END 2019-08-06 14:35 | disposition home or self-care (01) ==
LOC: CATH 07:07 → SDC 09:48 → CATH 14:35
PROVIDERS: ATTEND Internal Medicine Cardiovascular Disease
DX: I25.119 Atherosclerotic heart disease of native coronary artery with unspecified angina pectoris (principal); E78.5 Hyperlipidemia, unspecified; I77.9 Disorder of arteries and arterioles, unspecified; J44.9 Chronic obstructive pulmonary disease, unspecified; F17.210 Nicotine dependence, cigarettes, uncomplicated; F41.9 Anxiety disorder, unspecified; F32.9 Major depressive disorder, single episode, unspecified; Z79.82 Long term (current) use of aspirin; Z79.899 Other long term (current) drug therapy; Z79.02 Long term (current) use of antithrombotics/antiplatelets
CPT/HCPCS: 36415; 80053; 80061; 85027; 85610; 85730; 87081; 93005; 93458

== ENCOUNTER 2021-08-26 08:03 | Outpatient (CLI) | payer MEDICARE, MEDICAID ==
[~2021-08-26] VITALS: Ht 167.7 cm; Wt 59.1 kg
[~2021-08-26 08:03] MED LIST changes: +CLOP75TA28 PO
== END 2021-08-26 12:00 | disposition home or self-care (01) ==
LOC: PREOP 08:03
PROVIDERS: ATTEND Specialist
DX: Z01.818 Encounter for other preprocedural examination (principal)

== ENCOUNTER 2021-09-09 06:07 | Outpatient (CLI) | payer MEDICARE, MEDICAID ==
[~2021-09-09] VITALS: Ht 167.7 cm; Wt 56.8 kg
== END 2021-09-13 14:02 | disposition home or self-care (01) ==
LOC: PREOP 06:07
PROVIDERS: ATTEND Specialist
DX: Z01.818 Encounter for other preprocedural examination (principal)

== ENCOUNTER 2021-09-17 10:25 | Day surgery (SDC) | payer MEDICARE, MEDICAID ==
[~2021-09-17] VITALS: Ht 167.7 cm; Wt 56.8 kg
[2021-09-17 11:00] VITALS: BP 145/75
[2021-09-17] MEDS: TETRACAINE 0.5% OPHTH SOLN 4 ML BTL (SINGLE DOSE ONLY) OU PRN ×4 (11:41→11:57)
[2021-09-17] MEDS ORDERED: POVIDONE (BETADINE) OPHTH SOLN 5% 30 ML OP ONE (11:45)
[2021-09-17] MEDS ORDERED: LIDOCAINE PF 1% 2 ML VIAL IR PRN (11:45)
[2021-09-17] MEDS ORDERED: MOXIFLOXACIN OPHTH SOLN 5 MG/ML 0.3 ML SYRINGE OP ONE (11:45)
[2021-09-17] MEDS ORDERED: TIMOLOL MALEATE 0.5% 5 ML (TIMOPTIC) BTL OU PRN (11:45)
[2021-09-17] MEDS: TROPICAMIDE 1% OPH SOLN (MYDRIACYL) 15 ML BTL OP SCH ×3 (11:47→11:57)
[2021-09-17] MEDS: PHENYLEPHRINE 10% OPHTH (NEO-SYN) 5 ML BTL OU SCH ×3 (11:47→11:57)
[2021-09-17] MEDS ORDERED: MIDAZOLAM 2 MG/2 ML (VERSED) VIAL ONE (12:18)
--- NOTE | 2021-09-17 12:22 | Ophthalmologist Pre-Op Note ---
Pre-Operative Progress Note H&P Reviewed The H&P was reviewed, patient examined and no changes noted. Date H&P Reviewed: Sep 17, 2021 Time H&P Reviewed: 12:21 Pre-Op Dx Cataract, Right Eye TIARRA BARRERA MD Sep 17, 2021 12:21
--- NOTE | 2021-09-17 12:42 | Ophthalmology Operative Report ---
Cataract removal/placement IOL PREOPERATIVE DIAGNOSIS: Cataract Right Eye POSTOPERATIVE DIAGNOSIS: Cataract Right Eye PROCEDURE: Cataract removal and placement of posterior chamber implant, right eye SURGEON: Fran Barrera ANESTHESIA: Topical with sedation COMPLICATIONS: None ESTIMATED BLOOD LOSS: Minimal DESCRIPTION OF PROCEDURE: After proper informed consent was obtained, the patient, a 70 female, was taken to the Operating Room and the right eye was anesthetized with tetracaine. The right eye was then prepped and draped in the usual manner. A wire lid speculum was placed. A paracentesis was made at the left hand position. Preservative free lidocaine was injected into the anterior chamber followed by viscoelastic. A clear corneal incision was made in the temporal position. A capsulorrhexis was preformed and the central nuclear and cortical material were removed. The posterior capsule was polished and Manav 21.0 AU00T0 IOL was placed into the capsular bag. The residual viscoelastic was aspirated and balanced saline solution was injected into the anterior chamber. Moxifloxacin was injected into the anterior chamber. The wound was checked and found to be water tight. The patient tolerated the procedure well without complications. FRAN BARRERA MD Sep 17, 2021 12:42
[2021-09-17 12:49] VITALS: BP 140/67
[2021-09-17] MEDS ORDERED: acetaZOLAMIDE ER 500 MG CAP (DIAMOX SEQUELS) PO ONE (13:15)
--- NOTE | 2021-09-17 13:23 | Anesthesia-General Post-Op ---
MAC Patient Condition Mental Status/LOC: Same as Preop Cardiovascular: Satisfactory Nausea/Vomiting: Absent Respiratory: Satisfactory Pain: Controlled Complications: Absent Post Op Complications Complications None Follow Up Care/Instructions Patient Instructions None needed. Anesthesiology Discharge Order Discharge Order Patient is doing well, no complaints, stable vital signs, no apparent adverse anesthesia problems. No complications reported per nursing. SEBAS MALDONADO CRNA Sep 17, 2021 13:23
== END 2021-09-17 12:50 | disposition home or self-care (01) ==
LOC: SDC 10:25
PROVIDERS: ATTEND Specialist
DX: H25.9 Unspecified age-related cataract (principal); F17.200 Nicotine dependence, unspecified, uncomplicated; Z95.5 Presence of coronary angioplasty implant and graft
CPT/HCPCS: 66984; V2632